=== PATIENT | male | born 2000 | race Caucasian/White ===

== ENCOUNTER 2021-06-21 17:22 | Emergency (ER) | payer OTHER ==
[~2021-06-21] VITALS: Ht 182.9 cm; Wt 104.5 kg
[~2021-06-21 17:22] MED LIST: SERT-162 PO
[2021-06-21] MEDS: CYCLOBENZAPRINE HCL 10 MG TABLET PO ONE (19:40)
[2021-06-21] MEDS: KETOROLAC TROMETHAMINE 30 MG/ML VIAL IM ONE (19:40)
[2021-06-21] MEDS: LIDOCAINE 5% TRANSDERMAL PATCH TD ONE (19:40)
[2021-06-21] MEDS: MORPHINE SULFATE 4 MG/ML SYRINGE IM ONE (20:12)
[2021-06-21 20:43] VITALS: BP 163/124
== END 2021-06-21 21:08 | disposition home or self-care (01) ==
LOC: EMS 17:23
DX: M54.9 Dorsalgia, unspecified (principal); F17.200 Nicotine dependence, unspecified, uncomplicated; F12.90 Cannabis use, unspecified, uncomplicated
CPT/HCPCS: 96372; 99284; J1885; J2270